=== PATIENT | female | born 1970 | race Two or more races ===

== ENCOUNTER 2023-08-12 16:04 | Emergency (ER) | payer OTHER ==
[~2023-08-12] VITALS: Ht 152.4 cm; Wt 90.9 kg
[~2023-08-12 16:04] MED LIST: BENA40TA70 PO; HYDR25TA4 PO
[2023-08-12 17:08] VITALS: BP 158/79; PULSE 78; RESP 16; TEMP 97.4; O2SAT 98
[2023-08-12] MEDS ORDERED: ACET-1080 PO (17:10)
== END 2023-08-12 17:17 | disposition home or self-care (01) ==
LOC: ER 16:04
DX: S16.1XXA Strain of muscle, fascia and tendon at neck level, initial encounter (principal); R51.9 Headache, unspecified; Z90.710 Acquired absence of both cervix and uterus; Z79.899 Other long term (current) drug therapy; W01.0XXA Fall on same level from slipping, tripping and stumbling without subsequent striking against object, initial encounter; Y93.89 Activity, other specified; Y92.89 Other specified places as the place of occurrence of the external cause; Y99.8 Other external cause status
CPT/HCPCS: 70450; 72125